=== PATIENT | female | born 1960 | race Caucasian/White ===

== ENCOUNTER → 2019-03-20 | Day surgery (SDC) | payer BC ==
[2019-03-16 13:33] LABS: BASOPHILS % 0.7 % (0.0-1.0); EOSINOPHILS # (AUTO) 0.2 (0.0-0.4); EOSINOPHILS % 3.7 % (0.0-6.0); HEMATOCRIT 39.8 % (34.2-44.1); LYMPHOCYTES # (AUTO) 1.7 (1.0-3.2); LYMPHOCYTES % 28.9 % (18.0-39.1); MEAN CORPUSCULAR HEMOGLOBIN 29.9 pg (28-32); MEAN CORPUSCULAR HGB CONC 32.7 g/dL (31-35); MEAN CORPUSCULAR VOLUME 91.5 fL (81-99); MONOCYTES # (AUTO) 0.5 (0.2-0.8); NEUTROPHILS # (AUTO) 3.4 (2.1-6.9); NEUTROPHILS % 58.5 % (38.7-80.0); PLATELET COUNT 257 x10e3/uL (140-360); RED BLOOD COUNT 4.35 x10e6/uL (3.6-5.1); RED CELL DISTRIBUTION WIDTH 13.6 % (11.7-14.4)
[2019-03-16 13:43] LABS: INR 0.85; PROTHROMBIN TIME 12.1 seconds (11.9-14.5)
[2019-03-16 13:51] LABS: ALANINE AMINOTRANSFERASE 19 IU/L (0-55); ALBUMIN/GLOBULIN RATIO 1.1 (0.8-2.0); ALKALINE PHOSPHATASE 71 IU/L (40-150); BLOOD UREA NITROGEN 16 mg/dL (7-26); BUN/CREATININE RATIO 20 (6-25); CALCIUM 10.1 mg/dL (8.4-10.2); CARBON DIOXIDE 28 mmol/L (22-29); CHLORIDE 101 mmol/L (98-107); CREATININE, SERUM 0.81 mg/dL (0.57-1.11); EST GLOMERULAR FILTRATION RATE > 60 ML/MIN (60-); GLUCOSE 84 mg/dL (74-118); SODIUM 137 mmol/L (136-145)
[~2019-03-20] VITALS: Ht 170.2 cm; Wt 70.3 kg
[2019-03-20] VITALS (10 sets, daily range): BP systolic 113–136; BP diastolic 73–93
[~2019-03-20] MED LIST: ALPRAZOLAM 0.5 MG TAB ONE; BENICAR20 MG PO; CALCIUM500 MG PO; DIPHENHYDRAMINE HCL 25 MG CAP ONE; DYMISTA NASAL S23 GM; ESTRADIOL1 MG PO; FENTANYL CITRATE/PF 100MCG/2 ML INJ ONE; FERROUS SULFAT325 MG PO; FISH OIL 1,2001 EACH PO; HEPARIN SOD/SOD CHLORIDE 2,000 ML ONE; LIDOCAINE HCL 2% LOCAL 20 ML VIAL ONE; MIDAZOLAM HCL 2 MG/2 ML VIAL ONE; OMEPRAZOLE40 MG PO; PROGESTERONE100 MG PO; SODIUM CHLORIDE 0.9% 1000ML 1,000 ML ONE; SYNTHROID125 MCG PO; VERAPAMIL HCL 2.5 MG/ML 2 ML VIAL ONE
--- OUTSIDE RECORDS SUMMARY | 2019-03-20 13:31 | XMS REPORT | Clinical Summary ---
Author Author [facility] Address Unknown Phone Unavailable Care Team Providers Care Foot And Ankle Surgeon Name Role Phone Asked, No Pcp PCP Unavailable Allergies Not on File Medications Not on file Active Problems Not on file Encounters Care Team Description Date Type Specialty Chapito Corcoran MD Trochanteric bursitis, left hip (Primary Dx) 02/20/2019 Transcribe Physical Therapy Orders after 03/19/2018 Social History Date Tobacco Use Types Packs/Day Years Used Never Assessed Sex Assigned at Date Recorded Not on file Industry Job Start Date Occupation Not on file Not on file Not on file Travel End Travel History Travel Start No recent travel history available. Last Filed Vital Signs Not on file Plan of Treatment Care Team Description Date [place] [address] [place] [address] [phone] Linda Mathis, PT 03/23/2019 Office Visit [place] [address] [place] [address] [phone] Linda Mathis, PT 03/28/2019 Office [place] [address] [place] [address] [phone] Linda Mathis, PT 03/30/2019 Office [place] [address] [place] [address] [phone] Linda Mathis, PT 04/04/2019 Office [place] [address] [place] [address] [phone] 04/06/2019 Office Visit Physical Therapy Health Maintenance Due Date Last Done Comments BREAST CANCER SCREENING 2010 COLONOSCOPY SCREENING 2010 SHINGLES VACCINES (#1) 2010 INFLUENZA VACCINE 05/03/2019 Results Not on fileafter 03/19/2018 Insurance Type Payer Benefit Subscriber ID Effective Phone Address Plan / Dates Group PPO BCBS BCBS OUT xxxxxxxxxxxxxx [id number] OF STATE resent Advance Directives Patient has advance care planning documents on file. For more information, karlo phillips contact: Giovanni Uribe [address] [place] [address]
--- OUTSIDE RECORDS SUMMARY | 2019-03-20 13:32 | XMS REPORT | Summary of Care ---
Author Author [facility] Address Unknown Phone Unavailable Encounter MIGEUL Chauhan(KAILA) [id number] Date(s): 10/07/17 - 10/07/17 [facility] Out[facility] [id number] [place] [address] [phone] Discharge Disposition: Home or Self Care Attending Physician: Valeriano Magana MD Vital Signs No data available for this section Problem List Condition Effective Dates Status Health Status Informant Acute stress Resolved disorder(Confirmed) Benign Active hypertension(Confirm ed) Chicken Resolved pox(Confirmed) Low serum vitamin Active D(Confirmed) Rossi Active thyroiditis1 Hypothyroidism(Confi Active rmed) Skin Resolved problem(Confirmed) Thyroid Resolved disease(Confirmed) Vitamin D 02/03/15 Active deficiency2 1Data migrated from [employer] on 04/09/15. 2Data migrated from [employer] on 04/09/15. Allergies, Adverse Reactions, Alerts Substance Reaction Severity Status NKDA Active Medications No data available for this section Results No data available for this section Immunizations Given and Recorded Vaccine Date Status Refusal Reason zoster vaccine live 04/07/16 Given Not Given Vaccine Date Status Refusal Reason influenza virus vaccine, inactivated1 12/13/14 Not Given Patient Refuses 1Result Comment: aware Procedures Procedure Date Related Diagnosis Body Site Laparoscopic sleeve gastrectomy 12/12/14 section ORIF - Open reduction and internal fixation of fracture ORIF - Open reduction and internal fixation of fracture Tonsillectomy and adenoidectomy Social History Social History Type Response Substance Abuse Use: None. Exercise Exercise duration: 30. Exercise frequency: 1-2 times/week. Exercise type: ride bike and treadmil. Employment/School Status: Employed. 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 Other: Maritial Status: to [place] Children: 2 boys Pets: none Surrogate Decision Maker: both. Alcohol Never Smoking Status Never smoker; Exposure to Tobacco Smoke None; Cigarette Smoking Last 365 Days No; Reg Smoking Cessation Counseling Yes Assessment and Plan No data available for this section
--- OUTSIDE RECORDS SUMMARY | 2019-03-20 13:32 | XMS REPORT | Continuity of Care Document ---
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 12/06/2014 [facility] CHEM PANEL Sodium Lvl 142 meq/L 135 - 145 12/06/2014 [facility] CHEM PANEL ALT 27 unit/L 0 - 65 12/06/2014 [facility] CHEM PANEL AST 14 unit/L 0 - 37 12/06/2014 [facility] CHEM PANEL Total Protein 7.6 g/dL 6.4 - 8.4 12/06/2014 [facility] CHEM PANEL Albumin Lvl 4.1 g/dL 3.5 - 5.0 12/06/2014 [facility] CHEM PANEL Calcium Lvl 9.5 mg/dL 8.5 - 10.5 12/06/2014 [facility] HEMATOLOGY INR 0.94 0.85 - 1.17 12/06/2014 5Interpretive Data: RECOMMENDED RANGES FOR PROTIME INR: 2.0-3.0 for most medical and surgical thromboembolic states. 2.5-3.5 for artificial heart valves and recurrent embolism. INR SHOULD BE USED ONLY FOR PATIENTS ON STABLE ANTICOAGULANT THERAPY. [facility] HEMATOLOGY PT 12.6 s 12.0 - 14.7 12/06/2014 [facility] HEMATOLOGY PTT 35.7 s 22.9 - 35.8 12/06/2014 6Interpretive Data: Heparin Therapeutic Range: 57 - 92 Seconds [facility] HEMATOLOGY MPV 8.9 fL 7.4 - 10.4 12/06/2014 [facility] HEMATOLOGY Platelet 241 K/CMM 133 - 450 12/06/2014 [facility] HEMATOLOGY MCHC 33.9 g/dL 32.0 - 36.0 12/06/2014 [facility] HEMATOLOGY RDW 14.4 % 11.5 - 14.5 12/06/2014 [facility] HEMATOLOGY MCV 90.2 fL 80.0 - 98.0 12/06/2014 [facility] HEMATOLOGY MCH 30.5 pg 27.0 - 31.0 12/06/2014 [facility] HEMATOLOGY Hct 42.7 % 36.0 - 48.0 12/06/2014 [facility] HEMATOLOGY RBC 4.74 M/CMM 4.20 - 5.40 12/06/2014 [facility] HEMATOLOGY Hgb 14.5 g/dL 12.0 - 16.0 12/06/2014 [facility] HEMATOLOGY WBC 6.4 K/CMM 3.7 - 10.4 12/06/2014 [facility] HEMATOLOGY Lymphocytes 25.0 % 20.0 - 40.0 12/06/2014 [facility] HEMATOLOGY Monocytes 7.0 % 2.0 - 12.0 12/06/2014 [facility] HEMATOLOGY Segs 65.5 % 45.0 - 75.0 12/06/2014 [facility] HEMATOLOGY Eosinophils 2.3 % 0.0 - 4.0 12/06/2014 [facility] HEMATOLOGY Basophils 0.2 % 0.0 - 1.0 12/06/2014 [facility] HEMATOLOGY Eosinophils # 0.1 K/CMM 0.0 - 0.5 12/06/2014 [facility] HEMATOLOGY Lymphocytes # 1.6 K/CMM 1.0 - 5.5 12/06/2014 [facility] HEMATOLOGY Monocytes # 0.4 K/CMM 0.0 - 0.8 12/06/2014 [facility] HEMATOLOGY Segs-Bands # 4.2 K/CMM 1.5 - 8.1 12/06/2014 [facility] SPECIAL CHEMISTRY Hgb A1C 5.6 % <=5.6 % 12/06/2014 [facility] URINE AND STOOL UA Urobilinogen <=1.0 mg/dL 0.1 - 1.0 12/06/2014 [facility] URINE AND STOOL UA Leuk Est Negative (12/06/14 2:30 PM) Negative 12/06/2014 [facility] URINE AND STOOL UA WBC 1 /HPF 0 - 5 12/06/2014 [facility] URINE AND STOOL UA Sq Epi Few /LPF Few /LPF 12/06/2014 [facility] URINE AND STOOL UA Nitrite Negative (12/06/14 2:30 PM) Negative 12/06/2014 [facility] URINE AND STOOL UA RBC 1 /HPF 0 - 2 12/06/2014 [facility] URINE AND STOOL UA Bacteria Few /HPF None Seen /HPF 12/06/2014 [facility] URINE AND STOOL Micro? Not Indicated *NA* (12/06/14 2:30 PM) 12/06/2014 [facility] URINE AND STOOL UA Protein Negative mg/dL Negative mg/dL 12/06/2014 [facility] URINE AND STOOL UA Spec Grav 1.008 <=1.030 12/06/2014 [facility] URINE AND STOOL UA pH 6.5 5.0 - 8.0 12/06/2014 [facility] URINE AND STOOL UA Blood Negative (12/06/14 2:30 PM) Negative 12/06/2014 [facility] URINE AND STOOL UA Glucose Negative mg/dL Negative mg/dL 12/06/2014 [facility] URINE AND STOOL UA Ketones Negative mg/dL Negative mg/dL 12/06/2014 [facility] URINE AND STOOL UA Color Light Yellow *NA* (12/06/14 2:30 PM) Yellow 12/06/2014 [facility] URINE AND STOOL UA Turbidity Clear (12/06/14 2:30 PM) Clear 12/06/2014 [facility] URINE AND STOOL UA Bili Negative *NA* (12/06/14 2:30 PM) Negative 12/06/2014 [facility] THYROID PANEL TSH 12.800 uIU/mL 0.360 - 3.740 03/15/2014 [facility] THYROID PANEL T4 Free 0.95 ng/dL 0.76 - 1.46 03/15/2014 [facility] CHEMISTRY T4 Free 1.06 ng/dL 0.76 - 1.46 04/14/2013 Normal [facility] CHEMISTRY TSH 0.278 uIU/mL 0.360 - 3.740 04/14/2013 LOW [facility] CHEMISTRY Chloride Lvl 107 meq/L 95 - 109 04/14/2013 Normal [facility] CHEMISTRY Potassium Lvl 4.1 meq/L 3.5 - 5.1 04/14/2013 Normal [facility] CHEMISTRY Sodium Lvl 143 meq/L 135 - 145 04/14/2013 Normal [facility] CHEMISTRY B/C Ratio 16 6 - 25 04/14/2013 Normal [facility] CHEMISTRY eGFR 58 mL/min/1.73m2 04/14/2013 NA 1Result Comment: The eGFR is calculated using the CKD-EPI formula. In most young, healthy individuals the eGFR will be >90 mL/min/1.73m2. The eGFR declines with age. An eGFR of 60-89 may be normal in some populations, particularly the elderly, for whom the CKD-EPI formula has not been extensively validated. Use of the eGFR is not recommended in the following populations: Individuals with unstable creatinine concentrations, including patients and those with serious co-morbid conditions. Patients with extremes in muscle mass or diet. The data above are obtained from the National Kidney Disease Education Program (NKDEP) which additionally recommends that when the eGFR is used in patients with extremes of body mass index for purposes of drug dosing, the eGFR should be multiplied by the estimated BMI. [facility] CHEMISTRY Globulin 3.0 g/dL 2.0 - 4.0 04/14/2013 Normal [facility] CHEMISTRY A/G Ratio 1.3 0.7 - 1.6 04/14/2013 Normal [facility] CHEMISTRY Creatinine Lvl 1.1 mg/dL 0.5 - 1.4 04/14/2013 Normal [facility] CHEMISTRY BUN 18 mg/dL 7 - 22 04/14/2013 Normal [facility] CHEMISTRY Glucose Lvl 77 mg/dL 70 - 99 04/14/2013 Normal 2Interpretive Data: Adult reference range values reflect the clinical guidelines of the [place] [employer]. [facility] CHEMISTRY Bili Total 0.6 mg/dL 0.2 - 1.3 04/14/2013 Normal [facility] CHEMISTRY AST 14 unit/L 0 - 37 04/14/2013 Normal [facility] CHEMISTRY AGAP 11.1 meq/L 10.0 - 20.0 04/14/2013 Normal [facility] CHEMISTRY Alk Phos 86 unit/L 39 - 136 04/14/2013 Normal [facility] CHEMISTRY ALT 32 unit/L 0 - 65 04/14/2013 Normal [facility] CHEMISTRY Total Protein 6.8 g/dL 6.4 - 8.4 04/14/2013 Normal [facility] CHEMISTRY Albumin Lvl 3.8 g/dL 3.5 - 5.0 04/14/2013 Normal [facility] CHEMISTRY CO2 29 meq/L 24 - 32 04/14/2013 Normal [facility] CHEMISTRY Calcium Lvl 9.6 mg/dL 8.5 - 10.5 04/14/2013 Normal [facility] CHEMISTRY T4 Free 1.01 ng/dL 0.76 - 1.46 10/12/2012 Normal [facility] CHEMISTRY TSH 0.852 uIU/mL 0.360 - 3.740 10/12/2012 Normal [facility] CHEMISTRY TSH 0.122 uIU/mL 0.360 - 3.740 08/05/2012 LOW [facility] CHEMISTRY T4 Free 1.26 ng/dL 0.76 - 1.46 08/05/2012 Normal [facility] Vital Signs Vital Sign Value Date Comments Source Weight 70.142 10/30/2018 [facility] BMI Calculated 24.22 10/30/2018 [facility] Heart Rate 67 10/30/2018 [facility] Systolic (mm Hg) 122 10/30/2018 [facility] Diastolic (mm Hg) 80 10/30/2018 [facility] Height 170.18 cm 10/30/2018 [facility] Respitory Rate 18 10/30/2018 [facility] Height 170.18 cm 07/02/2018 [facility] BMI Calculated 24.82 07/02/2018 [facility] Weight 71.875 07/02/2018 [facility] Systolic (mm Hg) 153 07/02/2018 [facility] Diastolic (mm Hg) 79 07/02/2018 [facility] Temperature Oral (F) 98.8 F 07/02/2018 [facility] Respitory Rate 18 07/02/2018 [facility] Heart Rate 68 07/02/2018 [facility] BMI Calculated 24.48 04/27/2018 [facility] Weight 70.909 04/27/2018 [facility] Height 170.18 cm 04/27/2018 [facility] Heart Rate 63 04/27/2018 [facility] Systolic (mm Hg) 140 04/27/2018 [facility] Diastolic (mm Hg) 80 04/27/2018 [facility] Temperature Oral (F) 97.6 F 10/17/2017 [facility] Respitory Rate 18 10/17/2017 [facility] Heart Rate 58 10/17/2017 [facility] Systolic (mm Hg) 135 10/17/2017 [facility] Diastolic (mm Hg) 75 10/17/2017 [facility] BMI Calculated 23.86 08/26/2017 [facility] Weight 69.091 08/26/2017 [facility] Height 170.18 cm 08/26/2017 [facility] Respitory Rate 18 08/26/2017 [facility] Temperature Oral (F) 97.9 F 08/26/2017 [facility] Heart Rate 61 08/26/2017 [facility] Systolic (mm Hg) 117 08/26/2017 [facility] Diastolic (mm Hg) 79 08/26/2017 [facility] BMI Calculated 24.09 08/24/2017 [facility] Height 170.18 cm 08/24/2017 [facility] Weight 69.773 08/24/2017 [facility] Systolic (mm Hg) 114 08/24/2017 [facility] Diastolic (mm Hg) 71 08/24/2017 [facility] Heart Rate 67 08/24/2017 [facility] Temperature Oral (F) 97.5 F 08/24/2017 [facility] Heart Rate 80 12/13/2014 [facility] Systolic (mm Hg) 127 12/13/2014 [facility] Diastolic (mm Hg) 66 12/13/2014 [facility] Respitory Rate 18 12/13/2014 [facility] Temperature Oral (F) 98.1 F 12/13/2014 [facility] Temperature Oral (F) 98.6 F 12/13/2014 [facility] Respitory Rate 20 12/13/2014 [facility] Heart Rate 66 12/13/2014 [facility] Systolic (mm Hg) 119 12/13/2014 [facility] Diastolic (mm Hg) 50 12/13/2014 [facility] Heart Rate 65 12/13/2014 [facility] Temperature Oral (F) 98.6 F 12/13/2014 [facility] Respitory Rate 18 12/13/2014 [facility] Systolic (mm Hg) 118 12/13/2014 [facility] Diastolic (mm Hg) 63 12/13/2014 [facility] Weight 115.4 12/12/2014 [facility] Weight 115.455 12/06/2014 [facility] BMI Calculated 39.87 12/06/2014 [facility] Height 170.18 cm 12/06/2014 [facility] Encounters Location Location Details Encounter Type Encounter Number Reason For Visit Attending Provider ADM Date DC Date Status Source [facility] Outpatient [id number] 245.2 RUSSELL SHIVER 08/05/2012 Active [facility] Outpatient [id number] 245.2 RUSSELL SHIVER 10/12/2012 Active [facility] Outpatient [id number] 245.2, 401.1, V62.89 RUSSELL SHIVER 04/14/2013 Active [facility] Outpatient [id number] Russell Shiver 03/15/2014 03/16/2014 [facility] Outpatient [id number] Steve Kumari 06/26/2014 06/26/2014 [facility] Inpatient [id number] Steve Kumari 12/12/2014 12/13/2014 [facility] Outpatient [id number] Russell Shiver 01/18/2015 01/19/2015 [facility] Outpatient [id number] RUSSELL SHIVER 06/03/2015 Active [facility] [place] [facility] [id number] Valeriano Magana 12/22/2015 12/23/2015 [facility] [place] [facility] [id number] RUSSELL SHIVER 01/12/2016 Active [facility] Outpatient [id number] YANET HEARN 03/22/2016 Active [facility] Outpatient [id number] NURSE VISIT 04/07/2016 Active [facility] Outpatient [id number] YANET HEARN 05/31/2016 Active [facility] Outpatient [id number] Russell Romeo 07/02/2016 07/03/2016 [facility] Outpatient [id number] RUSSELL ESPINAL 07/13/2016 Active [facility] [place] [facility] [id number] Valeriano Anding 09/30/2016 10/01/2016 [facility] [id number] MARI DOTY 01/09/2017 Active [facility] Outpatient [id number] MARI DOTY 06/23/2017 Active [facility] Outpatient [id number] RUSSELL ESPINAL 08/17/2017 Active [facility] Ambulatory Pre-Reg [id number] Yanet Hearn 08/17/2017 08/17/2017 [facility] Outpatient [id number] RUSSELL ESPINAL 08/24/2017 Active [facility] Outpatient [id number] Yanet Hearn 08/24/2017 08/25/2017 [facility] Outpatient [id number] ADOLFO NICOLE 08/26/2017 Active [facility] Outpatient [id number] Yanet Hearn 08/26/2017 08/27/2017 [facility] Outpatient [facility] [place] [facility] [id number] [facility] 10[facility]07/2017 10/08/2017 [facility] [id number] ADOLFO NICOLE 10/17/2017 Active [facility] Outpatient [id number] Yanet Hearn 10/17/2017 10/18/2017 [facility] Internal Medicine [facility] Phone Message [id number] 12/02/2017 12/04/2017 [facility] Outpatient [id number] BRITTANI OLVERA 01/24/2018 Active [facility] Outpatient [id number] Yanet Hearn 01/24/2018 01/25/2018 [facility] Outpatient [id number] RUSSELL ESPINAL 04/27/2018 Active [facility] Outpatient [id number] Yanet Hearn 04/27/2018 04/28/2018 [facility] Outpatient [id number] RAVINDRA BRUNSON 07/02/2018 Active [facility] Outpatient [id number] Mari Doty 07/02/2018 07/03/2018 [facility] Internal Medicine [facility] Phone Message [id number] 08/21/2018 08/23/2018 [facility] Internal [facility] Phone Message [id number] 10/25/2018 10/27/2018 [facility] Outpatient [id number] RUSSELL SHIVER 10/30/2018 [facility] Outpatient [id number] Russell Shiver 10/30/2018 10/31/2018 [facility] Between Visit [id number] 01/10/2019 01/11/2019 [facility] Phone Message [id number] 01/11/2019 01/13/2019 [facility] Phone Message [id number] 02/08/2019 02/10/2019 [facility] Outpatient [id number] Russell Shiver 05/10/2019 [facility] Procedures Procedure Code Date Perfomer Comments Source Procedure<sup>1</sup> [id number] 09/02/2018 left leg veins [facility] Laparoscopic sleeve gastrectomy [id number] 12/12/2014 [facility] Laparoscopic sleeve gastrectomy [id number] 12/12/2014 [facility] Laparoscopic sleeve gastrectomy [id number] 12/12/2014 [facility] Women[facility] Laparoscopic sleeve gastrectomy [id number] 12/12/2014 Medical [facility] section [id number] [facility] ORIF - Open reduction and internal fixation of fracture [id number] [facility] Tonsillectomy and adenoidectomy [id number] [facility] section [id number] [facility] ORIF - Open reduction and internal fixation of fracture [id number] [facility] Tonsillectomy and adenoidectomy [id number] [facility] section [id number] [facility] Women's ORIF - Open reduction and internal fixation of fracture [id number] [facility] Women[facility] Tonsillectomy and adenoidectomy [id number] [facility] Women's section [id number] [facility] ORIF - Open reduction and internal fixation of fracture [id number] [facility] Tonsillectomy and adenoidectomy [id number] [facility]
--- OUTSIDE RECORDS SUMMARY | 2019-03-20 13:32 | XMS REPORT | Summary of Care ---
Author Author [email or web address] - [facility] Address Unknown Phone Unavailable Encounter HQ Encntr_alias(FIN) [id number] Date(s): 12/22/15 - 12/22/15 [email or web address] [address] [place] [address] [phone] Discharge Disposition: Home Attending Physician: Valeriano Mgaana MD Vital Signs No data available for this section Problem List No data available for this section Allergies, Adverse Reactions, Alerts No data available for this section Medications No data available for this section Results No data available for this section Immunizations No data available for this section Procedures No data available for this section Social History No data available for this section Assessment and Plan No data available for this section
--- OUTSIDE RECORDS SUMMARY | 2019-03-20 13:32 | XMS REPORT | Summary of Care ---
Author Organization Unknown Address Unknown Phone Unavailable Encounter HQ Rolandntr_clementine(FIN) [id number] Date(s): 03/15/14 - 03/15/14 [facility] [address] Discharge Disposition: Home Physician Attending: Carlee Walters MD Reason for Visit 278.00 Problem List No data available for this section Allergies, Adverse Reactions, Alerts No data available for this section Medications No data available for this section Results THYROID PANEL Most recent to 1 oldest [Reference Range]: T4 Free [0.76-1.46 0.95 ng/dL ng/dL] (03/15/14 4:11 PM) TSH [0.360-3.740 12.800 uIU/mL uIU/mL] *HI* (03/15/14 4:11 PM) Medications Administered During Your Visit No data available for this section Immunizations No data available for this section
--- OUTSIDE RECORDS SUMMARY | 2019-03-20 13:32 | XMS REPORT | CCD ---
Author Author Auto Generated Organization [facility] Address Unknown Phone Unavailable Care Team Providers Care Clinical Academic Allergist Name Role Phone Carlee Walters CP Results CHEMISTRY Most recent to oldest [Reference Range]: 1 T4 Free [0.76-1.46 ng/dL] 1.01 ng/dL (10/12/2012 17:45:00) TSH [0.360-3.740 uIU/mL] 0.852 uIU/mL (10/12/2012 17:45:00)
--- OUTSIDE RECORDS SUMMARY | 2019-03-20 13:32 | XMS REPORT | Summary of Care ---
Author Organization Unknown Address Unknown Phone Unavailable Encounter HQ Encntr_alias(KAILA) [id number] Date(s): 06/26/14 - 06/26/[address] Discharge Disposition: Home Physician Attending: Steve Kumari MD Physician_Referring: Steve Kumari MD Reason for Visit [id number] 530.81 Problem List No data available for this section Allergies, Adverse Reactions, Alerts No data available for this section Medications No data available for this section Medications Administered During Your Visit No data available for this section Immunizations No data available for this section
--- OUTSIDE RECORDS SUMMARY | 2019-03-20 13:32 | XMS REPORT | Summary of Care ---
Author Author [facility] Internal Medicine [facility] [place] Organization [facility] Internal Medicine [facility] [place] Address Unknown Phone Unavailable Encounter MIGUEL Chauhan(FIN) [id number] Date(s): 08/21/18 - 08/22/18 [facility] Internal Medicine [facility] [place] [address] [place] [address]- [phone] Vital Signs No data available for this section Problem List Condition Effective Dates Status Health Status Informant Acute stress Resolved disorder(Confirmed) Benign Active hypertension(Confirm ed) Chicken Resolved pox(Confirmed) Low serum vitamin Active D(Confirmed) Rossi Active thyroiditis1 Hypothyroidism(Confi Active rmed) Skin Resolved problem(Confirmed) Thyroid Resolved disease(Confirmed) Vitamin D 02/03/15 Active deficiency2 1Data migrated from [employer] on 04/09/15. 2Data migrated from [employer] on 04/09/15. Allergies, Adverse Reactions, Alerts No Known Medication Allergies Medications olmesartan 20 mg oral tablet 20 mg=1 tab, PO, Daily, # 30 tab, 5 Refill(s), Pharmacy: [facility]/pharmacy #[id number] Start Date: 08/21/18 Stop Date: 02/08/19 Status: Completed Results No data available for this section Immunizations Given and Recorded Vaccine Date Status Refusal Reason zoster vaccine live 04/07/16 Given Not Given Vaccine Date Status Refusal Reason influenza virus vaccine, inactivated1 12/13/14 Not Given Patient Refuses 1Result Comment: md aware Procedures Procedure Date Related Diagnosis Body Site Status Procedure1 09/2018 Completed Laparoscopic sleeve gastrectomy 12/12/14 Completed section Completed ORIF - Open reduction and internal fixation Completed of fracture ORIF - Open reduction and internal fixation Completed of fracture Tonsillectomy and adenoidectomy Completed 1left leg veins Social History Social History Type Response Substance Abuse Use: None. Exercise Exercise duration: 30. Exercise frequency: 1-2 times/week. Exercise type: Walking, ride bike and treadmil. Employment/School Status: Employed. 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 Other: Maritial Status: to [place] Children: 2 boys Pets: none Surrogate Decision Maker: both. Alcohol Current, Frequency: 1-2 times per week. Smoking Status Never smoker; Ready to change: No; Concerns about tobacco use in household: No; Exposure to Tobacco Smoke None; Cigarette Smoking Last 365 Days No; Reg Smoking Cessation Counseling Yes entered on: 10/30/18 Assessment and Plan No data available for this section
--- OUTSIDE RECORDS SUMMARY | 2019-03-20 13:32 | XMS REPORT | Summary of Care ---
Author Author [facility] Organization [facility] Address Unknown Phone Unavailable Encounter MIGUEL Chauhan(FIN) [id number] Date(s): 10/17/17 - 10/17/17 [facility] [address] [place] [address] [phone] Discharge Disposition: Home or Self Care Attending Physician: Toni Pastor MD Referring Physician: Nova Rivero MD Vital Signs Most recent to 1 oldest [Reference Range]: Temperature Oral 97.6 DegF [96.4-99.1 DegF] (10/17/17 5:55 PM) Blood Pressure 135/75 mmHg [90-140/60-90 mmHg] (10/17/17 5:55 PM) Respiratory Rate 18 BRMIN [14-20 BRMIN] (10/17/17 5:55 PM) Peripheral Pulse 58 bpm Rate [60-100 bpm] *LOW* (10/17/17 5:55 PM) Problem List Condition Effective Dates Status Health Status Informant Acute stress Resolved disorder(Confirmed) Benign Active hypertension(Confirm ed) Chicken Resolved pox(Confirmed) Low serum vitamin Active D(Confirmed) Rossi Active thyroiditis1 Hypothyroidism(Confi Active rmed) Skin Resolved problem(Confirmed) Thyroid Resolved disease(Confirmed) Vitamin D 02/03/15 Active deficiency2 1Data migrated from [email or web address] on 04/09/15. 2Data migrated from [email or web address] on 04/09/15. Allergies, Adverse Reactions, Alerts Substance Reaction Severity Status NKDA Active Medications Augmentin 875 mg oral tablet 875 mg=1 tab, PO, BID, X 10 day, # 20 tab, 0 Refill(s) Start Date: 10/17/17 Stop Date: 10/27/17 Status: Completed Results No data available for this section Immunizations Given and Recorded Vaccine Date Status Refusal Reason zoster vaccine live 04/07/16 Given Not Given Vaccine Date Status Refusal Reason influenza virus vaccine, inactivated1 12/13/14 Not Given Patient Refuses 1Result Comment: aware Procedures Procedure Date Related Diagnosis Body Site Status Laparoscopic sleeve gastrectomy 12/12/14 Completed section Completed ORIF - Open reduction and internal fixation Completed of fracture ORIF - Open reduction and internal fixation Completed of fracture Tonsillectomy and adenoidectomy Completed Social History Social History Type Response Substance Abuse Use: None. Exercise Exercise duration: 30. Exercise frequency: 1-2 times/week. Exercise type: ride bike and treadmil. Employment/School Status: Employed. 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 Other: Maritial Status: to Seg[place] Children: 2 boys Pets: none Surrogate Decision Maker: both. Alcohol Never Smoking Status Never smoker; Ready to change: No; Concerns about tobacco use in household: No; Exposure to Tobacco Smoke None; Cigarette Smoking Last 365 Days No; Reg Smoking Cessation Counseling Yes entered on: 10/17/17 Assessment and Plan No data available for this section
--- OUTSIDE RECORDS SUMMARY | 2019-03-20 13:32 | XMS REPORT | CCD ---
Author Author Auto Generated Organization [facility] Address Unknown Phone Unavailable Care Team Providers Care [employer] Music Teacher Name Role Phone Carlee Walters CP Results CHEMISTRY Most recent to oldest [Reference Range]: 1 Sodium Lvl [135-145 mEq/L] 143 mEq/L (04/14/2013 08:27:00) Potassium Lvl [3.5-5.1 mEq/L] 4.1 mEq/L (04/14/2013 08:27:00) Chloride Lvl [95-109 mEq/L] 107 mEq/L (04/14/2013 08:27:00) CO2 [24-32 mEq/L] 29 mEq/L (04/14/2013 08:27:00) AGAP [10.0-20.0 mEq/L] 11.1 mEq/L (04/14/2013 08:27:00) Creatinine Lvl [0.5-1.4 mg/dL] 1.1 mg/dL (04/14/2013 08:27:00) eGFR 58 mL/min/1.73m2 1 *NA* (04/14/2013 08:27:00) BUN [7-22 mg/dL] 18 mg/dL (04/14/2013 08:27:00) B/C Ratio [6-25] 16 (04/14/2013 08:27:00) Glucose Lvl [70-99 mg/dL] 77 mg/dL 2 (04/14/2013 08:27:00) Total Protein [6.4-8.4 g/dL] 6.8 g/dL (04/14/2013 08:27:00) Albumin Lvl [3.5-5.0 g/dL] 3.8 g/dL (04/14/2013 08:27:00) Globulin [2.0-4.0 g/dL] 3.0 g/dL (04/14/2013) A/G Ratio [0.7-1.6] 1.3 (04/14/2013:) Calcium Lvl [8.5-10.5 mg/dL] 9.6 mg/dL (04/14/2013:) ALT [0-65 unit/L] 32 unit/L (04/14/2013:) AST [0-37 unit/L] 14 unit/L (04/14/2013) Alk Phos [39-136 unit/L] 86 unit/L (04/14/2013) Bili Total [0.2-1.3 mg/dL] 0.6 mg/dL (04/14/2013) T4 Free [0.76-1.46 ng/dL] 1.06 ng/dL (04/14/2013) TSH [0.360-3.740 uIU/mL] 0.278 uIU/mL *LOW* (04/14/2013) 1Result Comment: The eGFR is calculated using [...] from the National Kidney Disease Education Program ( NKDEP) which additionally recommends that when the eGFR is used in patients with extremes of body mass index for purposes of drug dosing, the eGFR should be mul tiplied by the estimated BMI. 2Interpretive Data: Adult reference range values reflect the clinical guidelines of the [place] [employer].
--- OUTSIDE RECORDS SUMMARY | 2019-03-20 13:32 | XMS REPORT | Summary of Care ---
Author Author [facility] Address Unknown Phone Unavailable Encounter HQ Encntr_alias(FIN) [id number] Date(s): 09/30/16 - 09/30/16 [facility] Outpatient Imaging - [facility] works [facility] [address] [place] [id number] [place] [address] [phone] Discharge Disposition: Home or Self Care Attending [...]
--- OUTSIDE RECORDS SUMMARY | 2019-03-20 13:32 | XMS REPORT | Summary of Care ---
Author Author [facility] Internal Medicine [facility] [place] Organization [facility] [place] Address Unknown Phone Unavailable Encounter MIGUEL Chauhan(FIN) [id number] Date(s): 08/17/17 - 08/17/17 [facility] Internal [place] [facility] [place] [address] [place] [address]- Attending Physician: Carlee Walters MD Referring Physician: Nova Rivero MD Vital Signs No data available for [...] treadmil. Employment/School Status: Employed. 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 Other: Maritial Status: to Seg[place] Children: 2 boys Pets: none Surrogate Decision Maker: both. Alcohol Never Smoking Status Never smoker; Exposure to Tobacco Smoke None; Cigarette Smoking Last 365 Days No; Reg Smoking Cessation Counseling Yes Assessment and Plan No data available for this section
--- OUTSIDE RECORDS SUMMARY | 2019-03-20 13:32 | XMS REPORT | Summary of Care ---
Author Organization Unknown Address Unknown Phone Unavailable Encounter HQ Amarilis_clementine(FIN) [id number] Date(s): 01/18/15 - 01/18/15 [facility] [address] [place] [address]- Discharge Disposition: Home Physician Attending: Carlee Walters MD Vital Signs No data available for this section Problem List Condition Effective Dates Status Health Status Informant Hypertension(Confirm Active ed) Hypothyroidism(Confi Active rmed) Morbid Active obesity(Confirmed) Allergies, Adverse Reactions, Alerts Substance Reaction Severity Status NKDA Active Medications No data available for this section Results THYROID PANEL Most recent to 1 oldest [Reference Range]: T4 Free [0.76-1.46 1.44 ng/dL ng/dL] (01/18/15 9:05 AM) TSH [0.360-3.740 0.295 uIU/mL uIU/mL] *LOW* (01/18/15 9:05 AM) Immunizations Vaccine Date Refusal Reason influenza virus vaccine, inactivated1 12/13/14 Patient Refuses 1Result Comment: aware Procedures Procedure Date Related Diagnosis Body Site Laparoscopic sleeve gastrectomy 12/12/14 section ORIF - Open reduction and internal fixation of fracture ORIF - Open reduction and internal fixation of fracture Tonsillectomy and adenoidectomy Social History Social History Type Response Alcohol Current, Frequency: 1-2 times per week. Smoking Status Never smoker; Type: Cigarettes; Exposure to Tobacco Smoke None; Cigarette Smoking Last 365 Days No; Reg Smoking Cessation Counseling Yes Assessment and Plan No data available for this section
--- OUTSIDE RECORDS SUMMARY | 2019-03-20 13:32 | XMS REPORT | CCD ---
Author Author Auto Generated Organization [facility] Address Unknown Phone Unavailable Care Team Providers Care Automatic Packer Operator Name Role Phone Carlee Walters RP Results CHEMISTRY Most recent to oldest [Reference Range]: 1 T4 Free [0.76-1.46 ng/dL] 1.26 ng/dL (08/05/2012 10:00:00) TSH [0.360-3.740 uIU/mL] 0.122 uIU/mL *LOW* (08/05/2012 10:00:00)
--- OUTSIDE RECORDS SUMMARY | 2019-03-20 13:32 | XMS REPORT | Summary of Care ---
Author Author [facility] Internal Medicine [facility] [place] Organization [facility] Internal Medicine [facility] Address Unknown Phone Unavailable Encounter MIGUEL Chauhan(KAILA) [id number] Date(s): 08/24/17 - 08/24/17 [facility] Internal Medicine [address] [place] [address]- Discharge Disposition: Home or Self Care Attending Physician: Nova Rivero MD Referring Physician: Nova Rivero MD Vital Signs Most recent to 1 oldest [Reference Range]: Height 170.18 cm (08/24/17 8:39 AM) Temperature Oral 97.5 DegF [96.4-99.1 DegF] (08/24/17 8:39 AM) Blood Pressure 114/71 mmHg [90-140/60-90 mmHg] (08/24/17 8:39 AM) Peripheral Pulse 67 bpm Rate [60-100 bpm] (08/24/17 8:39 AM) Weight 69.773 kg (08/24/17 8:39 AM) Body Mass Index 24.09 m2 (08/24/17 8:39 AM) Problem List Condition Effective Dates Status Health Status Informant Acute stress Resolved disorder(Confirmed) Benign Active hypertension(Confirm ed) Chicken Resolved pox(Confirmed) Low serum vitamin Active D(Confirmed) Rossi Active thyroiditis1 Hypothyroidism(Confi Active rmed) Skin Resolved problem(Confirmed) Thyroid Resolved disease(Confirmed) Vitamin D 02/03/15 Active deficiency2 1Data migrated from [employer] on 04/09/15. 2Data migrated from [employer] on 04/09/15. Allergies, Adverse Reactions, Alerts Substance Reaction Severity Status NKDA Active Medications Synthroid 137 mcg (0.137 mg) oral tablet 137 microgram=1 tab, PO, Daily, # 14 tab, 0 Refill(s), given to patient Start Date: 08/24/17 Status: Ordered Synthroid 137 mcg (0.137 mg) oral tablet 137 microgram=1 tab, PO, Daily, # 90 tab, 1 Refill(s), BUD, Pharmacy: [facility] #[id number], Brand necessary Start Date: 08/24/17 Stop Date: 02/20/18 Status: Ordered Results No data available for this section [...] treadmil. Employment/School Status: Employed. 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 Other: Maritial Status: to Seg[place] Children: 2 boys Pets: none Surrogate Decision Maker: both. Alcohol Never Smoking Status Never smoker; Exposure to Tobacco Smoke None; Cigarette Smoking Last 365 Days No; Reg Smoking Cessation Counseling Yes Assessment and Plan No data available for this section
--- OUTSIDE RECORDS SUMMARY | 2019-03-20 13:32 | XMS REPORT | Summary of Care ---
Author Author [facility] Organization [facility] Address Unknown Phone Unavailable Encounter MIGUEL Chauhan(FIN) [id number] Date(s): 08/26/17 - 08/26/17 [facility] [address] [place] [address] [phone] Discharge Disposition: Home or Self Care Attending Physician: Michael Doty MD Referring Physician: Nova Rivero MD Vital Signs Most recent to 1 oldest [Reference Range]: Height 170.18 cm (08/26/17 12:39 PM) Temperature Oral 97.9 DegF [96.4-99.1 DegF] (08/26/17 12:39 PM) Blood Pressure 117/79 mmHg [90-140/60-90 mmHg] (08/26/17 12:39 PM) Respiratory Rate 18 BRMIN [14-20 BRMIN] (08/26/17 12:39 PM) Peripheral Pulse 61 bpm Rate [60-100 bpm] (08/26/17 12:39 PM) Weight 69.091 kg (08/26/17 12:39 PM) Body Mass Index 23.86 m2 (08/26/17 12:39 PM) Problem List Condition Effective Dates Status [...] day, # 20 tab, 0 Refill(s), Pharmacy: [facility]/pharmacy # [id number] Start Date: 08/26/17 Stop Date: 09/05/17 Status: Ordered Results No data available for [...] treadmil. Employment/School Status: Employed. 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 Other: Maritial Status: to Seg[place] Children: 2 boys Pets: none Surrogate Decision Maker: both. Alcohol Never Smoking Status Never smoker; Exposure to Tobacco Smoke None; Cigarette Smoking Last 365 Days No; Reg Smoking Cessation Counseling Yes Assessment and Plan No data available for this section
--- OUTSIDE RECORDS SUMMARY | 2019-03-20 13:32 | XMS REPORT | Summary of Care ---
Author Author [facility] Organization [facility] Address Unknown Phone Unavailable Encounter HQ Encntr_alias(FIN) [id number] Date(s): 07/02/16 - 07/02/16 [facility] [address] [place] [address]- Discharge Disposition: Home or Self Care Attending Physician: Carlee Walters MD Vital Signs No data [...]
--- OUTSIDE RECORDS SUMMARY | 2019-03-20 13:32 | XMS REPORT | Summary of Care ---
Author Author [facility] Address Unknown Phone Unavailable Encounter MIGUEL Chauhan(FIN) [id number] Date(s): 10/07/17 - 10/07/17 [facility] [address] [place] [address]- [place] [phone] Encounter Diagnosis Encounter for screening mammogram for malignant neoplasm of breast (Final) - 10/12/17 Disorder of bone density and structure, unspecified (Final) - Asymptomatic menopausal state (Final) - Other specified disorders of bone density and structure, unspecified site (Final) - Discharge Disposition: Home or Self Care Attending [...] D 02/03/15 Active deficiency2 1Data migrated from [employer] on 04/09/15. 2Data migrated from [employer] on 04/09/15. Allergies, Adverse Reactions, Alerts Substance [...] treadmil. Employment/School Status: Employed. 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 Other: Maritial Status: to Seg[place] Children: 2 [...]
--- OUTSIDE RECORDS SUMMARY | 2019-03-20 13:32 | XMS REPORT | Summary of Care ---
Author Organization Unknown Address Unknown Phone Unavailable Encounter HQ Gissel(KAILA) [id number] Date(s): 12/12/14 - 12/13/14 [facility] [address] [employer] provided by [employer] [facility] [employer] [place] [address]- Discharge Disposition: Home Physician Attending: Steve Kumari MD Physician Admitting: Steve Kumari MD Physician_Referring: Steve Kumari MD Vital Signs 1 2 3 Most recent to oldest [Reference Range]: 170.18 cm (12/06/14 3:54 PM) Height 98.1 DegF (12/13/14 12:21 PM) 98.6 DegF (12/13/14 8:19 AM) 98.6 DegF (12/13/14 4:27 AM) Temperature Oral [96.4-99.1 DegF] 127/66 mmHg (12/13/14 12:21 PM) 119/50 mmHg (12/13/14 8:19 AM) 118/63 mmHg (12/13/14 4:27 AM) Blood Pressure [90-140/60-90 mmHg] 18 BRMIN (12/13/14 12:21 PM) 20 BRMIN (12/13/14 8:19 AM) 18 BRMIN (12/13/14 4:27 AM) Respiratory Rate [14-20 BRMIN] 80 bpm (12/13/14 12:21 PM) 66 bpm (12/13/14 8:19 AM) 65 bpm (12/13/14 4:27 AM) Peripheral Pulse Rate [60-100 bpm] 115.4 kg (12/12/14 12:37 PM) 115.455 kg (12/06/14 3:54 PM) Weight 39.87 m2 (12/06/14 3:54 PM) Body Mass Index Problem List Condition Effective Dates Status Health Status Informant Hypertension(Confirm Active ed) Hypothyroidism(Confi Active rmed) Morbid Active obesity(Confirmed) Allergies, Adverse Reactions, Alerts Substance Reaction Severity Status NKDA Active Medications acetaminophen-codeine 120 mg-12 mg/5 mL oral liquid 5 ml, PO, Q4H, Pain, # 240 mL, 0 Refill(s) Start Date: 12/13/14 Stop Date: 12/13/14 Status: Discontinued Benadryl 10 mg, 0.2 mL, Route: IVP, Drug form: INJ, ONCE, Dosing Weight 115.4, kg, PRN It michael, Start date: 12/13/14 1:52:00 Notes: (Same as: Benadryl) Start Date: 12/13/14 Stop Date: 12/13/14 Status: Completed cefOXitin (SCIP) 2 gm, Route: IVPB, Drug form: INJ, Q6H, Dosing Weight 115.455, kg, Start date: 0 12/12/14 12:00:00, Duration: 1 doses or times, Stop date: 12/12/14 12:00:00 Notes: (Same As: Mefoxin) Start Date: 12/12/14 Stop Date: 12/12/14 Status: Deleted Dilaudid 0.5 mg, 0.25 mL, Route: IV, Drug form: INJ, Q3H, Dosing Weight 115.455, kg, PRN Pain Score 7-10, Start date: 12/12/14 8:48:00, Duration: 30 day, Stop date: 01/01 10/17 8:47:00 Notes: Same as: Dilaudid Start Date: 12/12/14 Stop Date: 12/13/14 Status: Discontinued estradiol 2 mg oral tablet 2 mg=1 tab, PO, Daily, # 30 tab, 0 Refill(s) Start Date: 12/06/14 Stop Date: 12/13/14 Status: Discontinued Fish Oil PO, Daily, 0 Refill(s) Start Date: 12/06/14 Stop Date: 12/13/14 Status: Discontinued flumazenil 0.2 mg, Route: IVP, PRN, Dosing Weight 115.455, kg, PRN Benzodiazepine Reversal, Initial dose, Start date: 12/12/14 10:54:00, Duration: 30 day, Stop date: 01/11 10:53:00 Start Date: 12/12/14 Stop Date: 12/12/14 Status: Discontinued heparin 5,000 unit, 1 mL, Route: SUB-Q, Drug form: INJ, PRE OP, Start date: 12/11/14 23: 00:00, Duration: 1 day, Stop date: 12/12/14 22:59:00 Notes: porcine heparin Start Date: 12/11/14 Stop Date: 12/12/14 Status: Completed hydrochlorothiazide-lisinopril 25 mg-20 mg oral tablet 1 tab, PO, Daily, # 30 tab, 0 Refill(s) Start Date: 12/13/14 Stop Date: 12/13/14 Status: Discontinued hydrochlorothiazide-lisinopril 25 mg-20 mg oral tablet 1 tab, PO, Daily, # 30 tab, 0 Refill(s) Start Date: 12/06/14 Stop Date: 12/13/14 Status: Discontinued hydromorphone 0.5 mg, Route: IVP, Q5Min, Dosing Weight 115.455, kg, PRN Pain Score 7-10, Start date: 12/12/14 10:54:00, Duration: 4 doses or times, Stop date: Limited # of ti mes Start Date: 12/12/14 Stop Date: 12/12/14 Status: Discontinued HYDROmorphone 0.5mg/mL AUTOM[employer]BILE MECH[employer]IC SUPERVISOR (15mg/30 mL) 15 mg 15 mg, 30 mL, Route: IV, Initial Loading Dose: 0.3 mg, [employer]CH[employer]IC SUPERVISOR Dose: 0.2 mg, AUT[employer]CH[employer]IC SUPERVISOR Loc kout: 12 minutes, Continuous Basal Rate: 0 mg, 4 Hour Limit (In MG): 6, Drug For m: INJ, Continuous, Start date: 12/12/14 9:00:00, Duration: 30 day, Stop date: 0 01/11/15 8:5... Notes: (Same as: Dilaudid) conc=0.5 mg/mlHydromorphone [employer]CH[employer]IC SUPERVISOR Dose: ;Delay: ;Basal: Start Date: 12/12/14 Stop Date: 12/13/14 Status: Discontinued influenza virus vaccine, inactivated 0.5 ml, Route: IM, Drug Form: SUSP, Daily, Start date: 12/13/14 9:00:00, Duratio n: 1 doses or times, Stop date: 12/13/14 9:00:00 Notes: (Same as: Fluzone Quadrivalent) Start Date: 12/13/14 Stop Date: 12/13/14 Status: Completed labetalol 10 mg, Route: IVP, Q5Min, Dosing Weight 115.455, kg, PRN Elevated BP, Start date : 12/12/14 10:54:00, Duration: 5 doses or times, Stop date: Limited # of times Start Date: 12/12/14 Stop Date: 12/12/14 Status: Discontinued Lactated Ringers Injection IV 1,000 mL 1,000 mL, Rate: 75 ml/hr, Infuse over: 13.3 hr, Route: IV, Dosing Weight 115.455 kg, Total Volume: 1,000, Start date: 12/12/14 8:48:00, Stop date: 01/11/15 8:47 :00 Start Date: 12/12/14 Stop Date: 12/13/14 Status: Discontinued lisinopril 20 mg oral tablet 20 mg=1 tab, PO, Daily, # 30 tab, 0 Refill(s) Start Date: 12/13/14 Status: Ordered Lovenox 30 mg, 0.3 mL, Route: SUB-Q, Drug form: INJ, [id number], Dosing Weight 115.455, kg , Start date: 12/13/14 8:00:00, Duration: 30 day, Stop date: 01/11/15 20:00:00 Notes: (Same as: Lovenox) Start Date: 12/13/14 Stop Date: 12/13/14 Status: Discontinued medroxyPROGESTERone 2.5, PO, Daily, 0 Refill(s) Start Date: 12/06/14 Stop Date: 12/13/14 Status: Discontinued Mefoxin 2 gm, Route: IVPB, Drug form: INJ, Q6H, Dosing Weight 115.455, kg, Start date: 0 12/12/14 16:00:00, Duration: 1 doses or times, Stop date: 12/12/14 16:00:00 Notes: (Same As: Mefoxin) Start Date: 12/12/14 Stop Date: 12/12/14 Status: Completed Mefoxin 2 gm, Route: IVPB, Drug form: INJ, PRE OP, Start date: 12/11/14 23:00:00, Durati on: 1 day, Stop date: 12/12/14 22:59:00 Notes: (Same As: Mefoxin) Start Date: 12/11/14 Stop Date: 12/12/14 Status: Completed multivitamin PO, Daily, 0 Refill(s) Start Date: 12/06/14 Stop Date: 12/13/14 Status: Discontinued naloxone 0.04 mg, Route: IVP, Q2MIN, Dosing Weight 115.455, kg, PRN Narcotic Reversal, St art date: 12/12/14 10:54:00, Duration: 8 doses or times, Stop date: Limited # of times Start Date: 12/12/14 Stop Date: 12/12/14 Status: Discontinued naloxone 0.04 mg, 0.1 mL, Route: IVP, Drug form: INJ, Q2MIN, Dosing Weight 115.455, kg, P RN Narcotic Reversal, Start date: 12/12/14 8:48:00, Duration: 30 day, Stop date: 01/11/15 8:47:00 Notes: Same as Narcan Start Date: 12/12/14 Stop Date: 12/13/14 Status: Discontinued Ofirmev 1,000 mg, 100 mL, Route: IV, Drug form: INJ, Q6H, Dosing Weight 115.455, kg, for > or=50 kg, Start date: 12/12/14 12:00:00, Duration: 1 day, Stop date: 12/13/14 6:00:00 Notes: Infuse over 15 minutes Do not exceed 4gm/day of acetaminophen Start Date: 12/12/14 Stop Date: 12/13/14 Status: Completed ondansetron 4 mg, Route: IVP, ONCE, Dosing Weight 115.455, kg, PRN Nausea & Vomiting, Start date: 12/12/14 10:54:00 Start Date: 12/12/14 Stop Date: 12/12/14 Status: Discontinued Phenergan 12.5 mg rectal suppository 12.5 mg=1 supp, IA, Q4H, Nausea & Vomiting, # 12 supp, 0 Refill(s) Start Date: 12/13/14 Status: Ordered scopolamine 1.5 mg transdermal film 1 patch, Route: TOP, Drug Form: ERFILM, Dosing Weight 115.455, kg, ONCE, Start d ate: 12/12/14 8:41:00, Stop date: 12/12/14 8:41:00 Start Date: 12/12/14 Stop Date: 12/12/14 Status: Completed Synthroid 137 mcg (0.137 mg) oral tablet 137 microgram=1 tab, PO, Daily, # 30 tab, 0 Refill(s) Start Date: 12/06/14 Stop Date: 12/13/14 Status: Discontinued Tylenol with Codeine 120 mg-12 mg/5 mL oral liquid 15 ml, Route: PO, Drug Form: LIQ, Dosing Weight 115.4, kg, Q4H, PRN Pain Score 1 -5, Start date: 12/13/14 6:56:00, Stop date: 01/12/15 6:55:00 Notes: (acetaminophen-codeine 120-12 mg/5 ml oral liq) Do not exceed 4gm/day of acetaminophen. (Same as: Tylenol w/Codeine) Start Date: 12/13/14 Stop Date: 12/13/14 Status: Discontinued Tylenol with Codeine 120 mg-12 mg/5 mL oral liquid 15 mL, PO, Q4H, Pain Score 1-5, # 240 mL, 0 Refill(s) Start Date: 12/13/14 Status: Ordered Vitamin D PO, Daily, 0 Refill(s) Start Date: 12/06/14 Stop Date: 12/13/14 Status: Discontinued Zofran 4 mg, 2 mL, Route: IV, Drug form: INJ, Q6H, Dosing Weight 115.455, kg, PRN Nause a, Start date: 12/12/14 12:00:00, Duration: 30 day, Stop date: 01/11/15 6:00:00 Notes: (Same as: Zofran) Start Date: 12/12/14 Stop Date: 12/13/14 Status: Discontinued Zofran ODT 4 mg oral tablet, disintegrating 4 mg=1 tab, PO, BID, Nausea and Vomiting, Dissolve tab under tongue, # 10 tab, 0 Refill(s) Special Instructions: Dissolve tab under tongue Start Date: 12/13/14 Status: Ordered Results BLOOD BANK RESULTS Most recent to 1 2 oldest [Reference Range]: ABO/Rh O POS *Unknown* (12/12/14 6:50 AM) Antibody Scrn Negative (12/12/14 6:50 AM) ELECTROLYTES Most recent to 1 2 oldest [Reference Range]: Sodium Lvl [135-145 138 mEq/L 142 mEq/L mEq/L] (12/13/14 1:48 AM) (12/06/14 2:30 PM) Potassium Lvl 4.1 mEq/L 3.8 mEq/L [3.5-5.1 mEq/L] (12/13/14 1:48 AM) (12/06/14 2:30 PM) Chloride Lvl [95-109 106 mEq/L 103 mEq/L mEq/L] (12/13/14 1:48 AM) (12/06/14 2:30 PM) CO2 [24-32 mEq/L] 25 mEq/L 28 mEq/L (12/13/14 1:48 AM) (12/06/14 2:30 PM) AGAP [10.0-20.0 11.1 mEq/L 14.8 mEq/L mEq/L] (12/13/14 1:48 AM) (12/06/14 2:30 PM) CHEM PANEL Most recent to 1 2 oldest [Reference Range]: Creatinine Lvl 1.2 mg/dL 1.2 mg/dL [0.5-1.4 mg/dL] (12/13/14 1:48 AM) (12/06/14 2:30 PM) eGFR 51 mL/min/1.73m2 1 51 mL/min/1.73m2 2 *NA* *NA* (12/13/14 1:48 AM) (12/06/14 2:30 PM) BUN [7-22 mg/dL] 17 mg/dL 20 mg/dL (12/13/14 1:48 AM) (12/06/14 2:30 PM) B/C Ratio [6-25] 17 (12/06/14 2:30 PM) Glucose Lvl [70-99 98 mg/dL 3 80 mg/dL 4 mg/dL] (12/13/14 1:48 AM) (12/06/14 2:30 PM) Total Protein 7.6 g/dL [6.4-8.4 g/dL] (12/06/14 2:30 PM) Albumin Lvl [3.5-5.0 4.1 g/dL g/dL] (12/06/14 2:30 PM) Globulin [2.0-4.0 3.5 g/dL g/dL] (12/06/14 2:30 PM) A/G Ratio [0.7-1.6] 1.2 (12/06/14 2:30 PM) Calcium Lvl 8.4 mg/dL 9.5 mg/dL [8.5-10.5 mg/dL] *LOW* (12/06/14 2:30 PM) (12/13/14 1:48 AM) Magnesium Lvl 1.8 mg/dL [1.8-2.4 mg/dL] (12/13/14 1:48 AM) ALT [0-65 unit/L] 27 unit/L (12/06/14 2:30 PM) AST [0-37 unit/L] 14 unit/L (12/06/14 2:30 PM) Alk Phos [39-136 94 unit/L unit/L] (12/06/14 2:30 PM) Bili Total [0.2-1.3 0.3 mg/dL mg/dL] (12/06/14 2:30 PM) 1Result Comment: The eGFR is calculated using [...] be mul tiplied by the estimated BMI. 2Result Comment: The eGFR is calculated using [...] be mul tiplied by the estimated BMI. 3Interpretive Data: Adult reference range values reflect the clinical guidelines of the [place] [employer]. 4Interpretive Data: Adult reference range values reflect the clinical guidelines of the [place] [employer]. SPECIAL CHEMISTRY Most recent to 10 04 oldest [Reference Range]: Hgb A1C [<=5.6 %] 5.6 % (12/06/14 2:30 PM) URINE AND STOOL Most recent to 10 04 oldest [Reference Range]: UA Turbidity [Clear] Clear (12/06/14 2:30 PM) UA Color [Yellow] Light Yellow *NA* (12/06/14 2:30 PM) UA pH [5.0-8.0] 6.5 (12/06/14 2:30 PM) UA Spec Grav 1.008 [<=1.030] (12/06/14 2:30 PM) UA Glucose [Negative Negative mg/dL mg/dL] *NA* (12/06/14 2:30 PM) UA Blood [Negative] Negative (12/06/14 2:30 PM) UA Ketones [Negative Negative mg/dL mg/dL] *NA* (12/06/14 2:30 PM) UA Protein [Negative Negative mg/dL mg/dL] (12/06/14 2:30 PM) UA Urobilinogen <=1.0 mg/dL [0.1-1.0 mg/dL] *NA* (12/06/14 2:30 PM) UA Bili [Negative] Negative *NA* (12/06/14 2:30 PM) UA Leuk Est Negative [Negative] (12/06/14 2:30 PM) UA Nitrite Negative [Negative] (12/06/14 2:30 PM) UA WBC [0-5 /HPF] 1 /HPF (12/06/14 2:30 PM) UA RBC [0-2 /HPF] 1 /HPF (12/06/14 2:30 PM) UA Bacteria [None Few /HPF Seen /HPF] *NA* (12/06/14 2:30 PM) UA Sq Epi [Few /LPF] Few /LPF *NA* (12/06/14 2:30 PM) Micro? Not Indicated *NA* (12/06/14 2:30 PM) HEMATOLOGY Most recent to 1 2 oldest [Reference Range]: WBC [3.7-10.4 K/CMM] 9.8 K/CMM 6.4 K/CMM (12/13/14 1:48 AM) (12/06/14 2:30 PM) RBC [4.20-5.40 4.24 M/CMM 4.74 M/CMM M/CMM] (12/13/14 1:48 AM) (12/06/14 2:30 PM) Hgb [12.0-16.0 g/dL] 13.0 g/dL 14.5 g/dL (12/13/14 1:48 AM) (12/06/14 2:30 PM) Hct [36.0-48.0 %] 38.6 % 42.7 % (12/13/14 1:48 AM) (12/06/14 2:30 PM) MCV [80.0-98.0 fL] 91.0 fL 90.2 fL (12/13/14 1:48 AM) (12/06/14 2:30 PM) MCH [27.0-31.0 pg] 30.6 pg 30.5 pg (12/13/14 1:48 AM) (12/06/14 2:30 PM) MCHC [32.0-36.0 33.6 g/dL 33.9 g/dL g/dL] (12/13/14 1:48 AM) (12/06/14 2:30 PM) RDW [11.5-14.5 %] 14.7 % 14.4 % *HI* (12/06/14 2:30 PM) (12/13/14 1:48 AM) Platelet [133-450 226 K/CMM 241 K/CMM K/CMM] (12/13/14 1:48 AM) (12/06/14 2:30 PM) MPV [7.4-10.4 fL] 8.4 fL 8.9 fL (12/13/14 1:48 AM) (12/06/14 2:30 PM) Segs [45.0-75.0 %] 84.7 % 65.5 % *HI* (12/06/14 2:30 PM) (12/13/14 1:48 AM) Lymphocytes 7.7 % 25.0 % [20.0-40.0 %] *LOW* (12/06/14 2:30 PM) (12/13/14 1:48 AM) Monocytes [2.0-12.0 7.3 % 7.0 % %] (12/13/14 1:48 AM) (12/06/14 2:30 PM) Eosinophils [0.0-4.0 0.1 % 2.3 % %] (12/13/14 1:48 AM) (12/06/14 2:30 PM) Basophils [0.0-1.0 0.2 % 0.2 % %] (12/13/14 1:48 AM) (12/06/14 2:30 PM) Segs-Bands # 8.3 K/CMM 4.2 K/CMM [1.5-8.1 K/CMM] *HI* (12/06/14 2:30 PM) (12/13/14 1:48 AM) Lymphocytes # 0.7 K/CMM 1.6 K/CMM [1.0-5.5 K/CMM] *LOW* (12/06/14 2:30 PM) (12/13/14 1:48 AM) Monocytes # [0.0-0.8 0.7 K/CMM 0.4 K/CMM K/CMM] (12/13/14 1:48 AM) (12/06/14 2:30 PM) Eosinophils # 0.1 K/CMM [0.0-0.5 K/CMM] (12/06/14 2:30 PM) PT [12.0-14.7 12.6 seconds seconds] (12/06/14 2:30 PM) INR [0.85-1.17] 0.94 5 (12/06/14 2:30 PM) PTT [22.9-35.8 35.7 seconds 6 seconds] (12/06/14 2:30 PM) 5Interpretive Data: RECOMMENDED RANGES FOR PROTIME INR: 2.0-3.0 for most medical and surgical thromboembolic states. 2.5-3.5 for artificial heart valves and recurrent embolism. INR SHOULD BE USED ONLY FOR PATIENTS ON STABLE ANTICOAGULANT THERAPY. 6Interpretive Data: Heparin Therapeutic Range: 57 - 92 Seconds Immunizations Vaccine Date Refusal Reason influenza virus vaccine, inactivated1 12/13/14 Patient Refuses 1Result Comment: md aware Procedures [...] Smoking Cessation Counseling Yes Assessment and Plan Extracted from: Title: General Surgery Author: Sim Bueno Date: 12/13/14 Discharge Summary Admission Date: 12/12/2014 Discharge Date: 12/13/2014 Admission Diagnosis: 1. morbid obesity 2. hypertension 3. hyperlipidemia Final Diagnosis: 1. morbid obesity 2. hypertension 3. hyperlipidemia Attending Physician: Steve Kumari MD Consults: None Procedures: 1. robot assisted laparoscopic sleeve gastrectomy 2. esophagogastroduodenoscopy Reason for Admission: The patient is with a history of morbid obesity and associated comorbidities, who underwent the appropriate preoperative workup and was deemed an appropriate candidate for bariatric surgery. Hospital Course: The procedure was well tolerated, the patient was extubated in the operating room and transferred to the floor in stable condition. On POD#0, the patient was started on a bariatric clear liquid diet and transitioned to oral pain medication. On POD#1, the patient was ambulating independently with sufficient oral intake and was ready for discharge with strict instructions for the bariatric diet and post-operative follow up. Discharge Condition: Good Disposition: Discharged to home. Diet: Bariatric clear liquid diet Activity: No heavy lifting greater than 10 lbs until evaluated in post-op clinic. Special Instructions: - Do not attempt to remove Dermabond dressing - May shower; no bathing. - Do not drive while taking narcotic pain medications - Return to the ED with increased pain, fever, nausea, vomiting, signs of infection or drainage from the wound. Discharge Medications: See Medical Reconciliation Follow up: Follow up in [facility] in 1 week. Call to make an appointment. Extracted from: Title: progress note Author: Sim Leonard MD Date: 12/13/14 SUBJECTIVE: NAEO. Pain controlled. PHYSICAL EXAM: GENERAL: Resting comfortably, no distress CARDIAC: Regular rate and rhythm, acyanotic, no JVD PULMONARY: Normal rate, nonlabored, symmetric expansion, stable on room air ABDOMEN: Soft, non-distended. Incisions c/d/i. EXTREMITIES: No peripheral edema, palpable pulses VitalsTmp(F)[id number] 12/13 04:[id number]--- 12/12 23:[id number]--- 12/12 19:[id number]--- 12/12 15:[id number]--- 12/12 12:[id number]--- 24 Hr Tmax: 98.7F (37.06c) at 12/12 19:20Vital Signs are the last 5 in the past 48 hours. Labs (Last four charted values) WBC 9.8(DEC 13)6.4(DEC 06) Hgb 13.0(DEC 13)14.5(DEC 06) Hct 38.6(DEC 13)42.7(DEC 06) Plt 226(DEC 13)241(DEC 06) Na 138(DEC 13)142(DEC 06) K 4.1(DEC 13)3.8(DEC 06) CO2 25(DEC 13)28(DEC 06) Cl 106(DEC 13)103(DEC 06) Cr 1.2(DEC 13)1.2(DEC 06) BUN 17(DEC 13)20(DEC 06) Glucose Random 98(DEC 13)80(DEC 06) Mg 1.8(DEC 13) Ca L 8.4(DEC 13)9.5(DEC 06) PT 12.6(DEC 06) INR 0.94(DEC 06) PTT 35.7(DEC 06)I&ORecordInOutBal 1224hr Tot [id number] 370 4071 1124hr Tot 0 0 0 Lines, Tubes, and Drains: 12/12/2014 10:45 Peripheral Lines: Hand Left Over the needle catheter 12/12/2014 07:12 Peripheral Lines: Hand Right 20 gauge Over the needle catheter IMAGING: No new imaging. ASSESSMENT: 54 year o0ld woman POD #1 s/p laparoscopic sleeve gastrectomy PLAN: Pain: start tylenol 3 liquid, cont [employer]OM[employer]BI[employer] MECH[employer]IC SUPERVISOR Diet: start Brody CLD Encourage ambulation. Extracted from: Title: brief Op note Author: Sim Bueno Date: 12/12/14 Brief Op Note Date of Operation: 12/11/2014 Surgeon: Steve Kumari MD Frame And Scrap Crusher: Sim Trinidad MD Preoperative Diagnosis: 1. Morbid obesity 2. Hypertension 3. Hyperlipidemia Postoperative Diagnosis: 1. Morbid obesity 2. Hypertension 3. Hyperlipidemia Procedure: 1. laparoscopic sleeve gastrectomy 2. esophagogastroduodenoscopy Estimated Blood Loss: minimal Urine Output: not recorded Specimens: partial stomach Complications: none Disposition: 9 Matos
--- OUTSIDE RECORDS SUMMARY | 2019-03-20 13:33 | XMS REPORT | Summary of Care ---
Author Author [facility] Organization [facility] Address Unknown Phone Unavailable Encounter MIGUEL Chauhan(FIN) [id number] Date(s): 01/10/19 - 01/11/19 [facility] [address] [place] [address]- [phone] Vital Signs No data available for this section Problem List Condition Effective Dates Status Health Status Informant Acute stress Resolved disorder(Confirmed) Benign Active hypertension(Confirm ed) Chicken Resolved pox(Confirmed) Low serum vitamin Active D(Confirmed) Rossi Active thyroiditis1 Hypothyroidism(Confi Active rmed) Skin Resolved problem(Confirmed) Thyroid Resolved disease(Confirmed) Vitamin D 02/03/15 Active deficiency2 1Data migrated from [employer] on 04/09/15. 2Data migrated from [employer] on 04/09/15. Allergies, Adverse Reactions, Alerts Substance [...] treadmil. Employment/School Status: Employed. 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 Other: Maritial Status: to Segun Children: 2 [...]
--- OUTSIDE RECORDS SUMMARY | 2019-03-20 13:33 | XMS REPORT | Summary of Care ---
Author Author [facility] Organization [facility] Address Unknown Phone Unavailable Encounter HQ Rociorstephanie(FIN) [id number] Date(s): 07/02/18 - 07/02/18 [facility] [address] [place] [address]- [phone] Discharge Disposition: Home or Self Care Attending Physician: Michael Doty MD Referring Physician: Nova Rivero MD Vital Signs Most recent to 1 oldest [Reference Range]: Height 170.18 cm (07/02/18 1:26 PM) Temperature Oral 98.8 DegF [96.4-99.1 DegF] (07/02/18 1:26 PM) Blood Pressure 153/79 mmHg [90-140/60-90 mmHg] *HI* (07/02/18 1:26 PM) Respiratory Rate 18 BRMIN [14-20 BRMIN] (07/02/18 1:26 PM) Peripheral Pulse 68 bpm Rate [60-100 bpm] (07/02/18 1:26 PM) Weight 71.875 kg (07/02/18 1:26 PM) Body Mass Index 24.82 m2 (07/02/18 1:26 PM) Problem List Condition Effective Dates Status [...] Substance Reaction Severity Status NKDA Active Medications cyclobenzaprine 10 mg oral tablet 10 mg=1 tab, PO, Bedtime, X 14 day, # 14 tab, 0 Refill(s), Pharmacy: [facility] #[id number] Start Date: 07/02/18 Stop Date: 07/16/18 Status: Completed ibuprofen 600 mg oral tablet 600 mg=1 tab, PO, Q6H, PRN Pain, take with food, X 10 day, # 30 tab, 0 Refill(s) , Pharmacy: [facility] #[id number] Start Date: 07/02/18 Stop Date: 07/12/18 Status: Completed Results No data available for [...] treadmil. Employment/School Status: Employed. 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 Other: Maritial Status: to Segun Children: 2 [...]
--- OUTSIDE RECORDS SUMMARY | 2019-03-20 13:33 | XMS REPORT | Summary of Care ---
Author Author [facility] Organization [facility] Address Unknown Phone Unavailable Encounter MIGUEL Chauhan(FIN) [id number] Date(s): 01/11/19 - 01/12/19 [facility] [address] [place] [address]- [phone] Vital Signs No data available for this section Problem List Condition Effective Dates Status Health Status Informant Acute stress Resolved disorder(Confirmed) Benign Active hypertension(Confirm ed) Chicken Resolved pox(Confirmed) Low serum vitamin Active D(Confirmed) Rossi Active thyroiditis1 Hypothyroidism(Confi Active rmed) Skin Resolved problem(Confirmed) Thyroid Resolved disease(Confirmed) Vitamin D 02/03/15 Active deficiency2 1Data migrated from [employer] on 04/09/15. 2Data migrated from [employer] on 04/09/15. Allergies, Adverse Reactions, Alerts Substance Reaction Severity Status NKDA Active Medications Synthroid 125 mcg (0.125 mg) oral tablet =1 tab, PO, Daily, # 90 tab, 1 Refill(s), [facility], Pharmacy: [facility]/pharmacy #[id number] Start Date: 01/11/19 Status: Ordered Results No data available for [...] treadmil. Employment/School Status: Employed. 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 Other: Maritial Status: to Segun Children: 2 [...]
--- OUTSIDE RECORDS SUMMARY | 2019-03-20 13:33 | XMS REPORT | Summary of Care ---
Author Author [facility] Organization [facility] Address Unknown Phone Unavailable Encounter HQ [email or web address](FIN) [id number] Date(s): 01/24/18 - 01/24/18 [facility] [address] [place], [place] [address] [[email or web address]] [phone] Discharge Disposition: Home or Self Care Attending [...] treadmil. Employment/School Status: Employed. 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 Other: Maritial Status: to [place] Children: 2 [...]
--- OUTSIDE RECORDS SUMMARY | 2019-03-20 13:33 | XMS REPORT | Summary of Care ---
Author Author [facility] [place] Organization [facility] [place] Address Unknown Phone Unavailable Encounter HQ Amarilis_clementine(FIN) [id number] Date(s): 12/02/17 - 12/03/17 [facility] [place] [address] [facility] [address] [place] [address]- Vital Signs No data available for this section Problem List Condition Effective Dates Status Health Status Informant Acute stress Resolved disorder(Confirmed) Benign Active hypertension(Confirm ed) Chicken Resolved pox(Confirmed) Low serum vitamin Active D(Confirmed) Rossi Active thyroiditis1 Hypothyroidism(Confi Active rmed) Skin Resolved problem(Confirmed) Thyroid Resolved disease(Confirmed) Vitamin D 02/03/15 Active deficiency2 1Data migrated from [employer] on 04/09/15. 2Data migrated from [employer] on 04/09/15. Allergies, Adverse Reactions, Alerts Substance Reaction Severity Status NKDA Active Medications Synthroid 137 mcg (0.137 mg) oral tablet 137 microgram=1 tab, PO, Daily, Generic (DAW5), # 90 tab, 1 Refill(s), BUD, [facility] Start Date: 12/02/17 Stop Date: 05/31/18 Status: Ordered Results No data available for [...] treadmil. Employment/School Status: Employed. 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 Other: Maritial Status: to Segun Children: [...]
--- OUTSIDE RECORDS SUMMARY | 2019-03-20 13:33 | XMS REPORT | Summary of Care ---
Author Author [facility] Internal [facility] [place] Organization [facility] [place] Address Unknown Phone Unavailable Encounter MIGUEL Chauhan(FIN) [id number] Date(s): 02/08/19 - 02/09/19 [facility] Internal [facility] [place] [address] [facility] [address] [place] [address]- [phone] Vital Signs No data available for this section Problem List Condition Effective Dates Status Health Status Informant Acute stress Resolved disorder(Confirmed) Benign Active hypertension(Confirm ed) Chicken Resolved pox(Confirmed) Low serum vitamin Active D(Confirmed) Rossi Active thyroiditis1 Hypothyroidism(Confi Active rmed) Skin Resolved problem(Confirmed) Thyroid Resolved disease(Confirmed) Vitamin D 02/03/15 Active deficiency2 1Data migrated from [employer] on 04/09/15. 2Data migrated from [employer] on 04/09/15. Allergies, Adverse Reactions, Alerts No Known Medication Allergies Medications olmesartan 20 mg oral tablet =1 tab, PO, Daily, # 30 tab, Refill(s) 2, Pharmacy: [facility]/pharmacy #[id number] Start Date: 02/08/19 Status: Ordered Results No data available for [...] treadmil. Employment/School Status: Employed. 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 Other: Maritial Status: to Segun Children: 2 [...]
--- OUTSIDE RECORDS SUMMARY | 2019-03-20 13:33 | XMS REPORT | Summary of Care ---
Author Author [facility] Internal Medicine [facility] [place] Organization [facility] Internal Medicine [facility] Address Unknown Phone Unavailable Encounter MIGUEL Chauhan(FIN) [id number] Date(s): 10/25/18 - 10/26/18 [facility] Internal Medicine [facility] [address] [facility] [address] [place] [address]- Vital Signs No data available for this section Problem List Condition Effective Dates Status Health Status Informant Acute stress Resolved disorder(Confirmed) Benign Active hypertension(Confirm ed) Chicken Resolved pox(Confirmed) Low serum vitamin Active D(Confirmed) Rossi Active thyroiditis1 Hypothyroidism(Confi Active rmed) Skin Resolved problem(Confirmed) Thyroid Resolved disease(Confirmed) Vitamin D 02/03/15 Active deficiency2 1Data migrated from [employer] on 04/09/15. 2Data migrated from [employer] on 04/09/15. Allergies, Adverse Reactions, Alerts Substance Reaction Severity Status NKDA Active Medications Synthroid 125 mcg (0.125 mg) oral tablet =1 tab, PO, Daily, # 90 tab, Refill(s) 1, [facility] Start Date: 10/25/18 Status: Ordered Results No data available for [...] treadmil. Employment/School Status: Employed. 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 Other: Maritial Status: to Segun Children: 2 boys Pets: none Surrogate Decision Maker: both. Alcohol Never Smoking Status Never smoker; Ready to change: No; Concerns about tobacco use in household: No; Exposure to Tobacco Smoke None; Cigarette Smoking Last 365 Days No; Reg Smoking Cessation Counseling Yes entered on: 07/02/18 Assessment and Plan No data available for this section
--- OUTSIDE RECORDS SUMMARY | 2019-03-20 13:33 | XMS REPORT | Summary of Care ---
Author Author [facility] [place] Organization [facility] [place] Address Unknown Phone Unavailable Encounter MIGUEL Chauhan(KAILA) [id number] Date(s): 10/30/18 - 10/30/18 [facility] [address] [facility] [address] [place] [address]- Discharge Disposition: Home or Self Care Attending Physician: Carlee Walters MD Referring Physician: Nova Rivero MD Vital Signs Most recent to 1 oldest [Reference Range]: Height 170.18 cm (10/30/18 3:46 PM) Blood Pressure 122/80 mmHg [90-140/60-90 mmHg] (10/30/18 3:46 PM) Respiratory Rate 18 BRMIN [14-20 BRMIN] (10/30/18 3:46 PM) Peripheral Pulse 67 bpm Rate [60-100 bpm] (10/30/18 3:46 PM) Weight 70.142 kg (10/30/18 3:46 PM) Body Mass Index 24.22 m2 (10/30/18 3:46 PM) Problem List Condition Effective Dates Status Health Status Informant Acute stress Resolved disorder(Confirmed) Benign Active hypertension(Confirm ed) Chicken Resolved pox(Confirmed) Low serum vitamin Active D(Confirmed) Rossi Active thyroiditis1 Hypothyroidism(Confi Active rmed) Skin Resolved problem(Confirmed) Thyroid Resolved disease(Confirmed) Vitamin D 02/03/15 Active deficiency2 1Data migrated from [employer] on 04/09/15. 2Data migrated from [employer] on 04/09/15. Allergies, Adverse Reactions, Alerts Substance Reaction Severity Status NKDA Active Medications No Known Medications Results No data available for this section [...] treadmil. Employment/School Status: Employed. 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 Other: Maritial Status: to Segun Children: 2 [...]
--- OUTSIDE RECORDS SUMMARY | 2019-03-20 13:33 | XMS REPORT | Summary of Care ---
Author Author [facility] [place] [facility] [place] [facility] [place] [facility] [place] Address Unknown Phone Unavailable Encounter MIGUEL Chauhan(KAILA) [id number] Date(s): 04/27/18 - 04/27/18 [facility] [place] [facility] [place] [address] [facility] [address] [place] [address]- Discharge Disposition: Home or Self Care Attending Physician: Nova Rivero MD Referring Physician: Nova Rivero MD Vital Signs Most recent to 1 oldest [Reference Range]: Height 170.18 cm (04/27/18 2:48 PM) Blood Pressure 140/80 mmHg [90-140/60-90 mmHg] (04/27/18 2:48 PM) Peripheral Pulse 63 bpm Rate [60-100 bpm] (04/27/18 2:48 PM) Weight 70.909 kg (04/27/18 2:48 PM) Body Mass Index 24.48 m2 (04/27/18 2:48 PM) Problem List Condition Effective Dates Status Health Status Informant Acute stress Resolved disorder(Confirmed) Benign Active hypertension(Confirm ed) Chicken Resolved pox(Confirmed) Low serum vitamin Active D(Confirmed) Rossi Active thyroiditis1 Hypothyroidism(Confi Active rmed) Skin Resolved problem(Confirmed) Thyroid Resolved disease(Confirmed) Vitamin D 02/03/15 Active deficiency2 1Data migrated from [employer] on 04/09/15. 2Data migrated from [employer] on 04/09/15. Allergies, Adverse Reactions, Alerts Substance Reaction Severity Status NKDA Active Medications Synthroid 125 mcg (0.125 mg) oral tablet 125 microgram=1 tab, PO, Daily, # 2 box, 0 Refill(s), given to patient Start Date: 04/27/18 Stop Date: 07/02/18 Status: Discontinued Synthroid 125 mcg (0.125 mg) oral tablet 125 microgram=1 tab, PO, Daily, # 90 tab, 1 Refill(s), [facility] Start Date: 04/27/18 Stop Date: 10/25/18 Status: Completed ZyrTEC Daily, 0 Refill(s) Start Date: 04/27/18 Status: Ordered Results No data available for [...] treadmil. Employment/School Status: Employed. 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 Other: Maritial Status: to Segun Children: 2 [...]
--- NOTE | 2019-03-20 15:47 | Operative Report ---
DATE OF PROCEDURE: 03/20/2019 SURGEON: Perez Jane MD INDICATION: Coronary artery disease, abnormal stress test. PROCEDURES PERFORMED: 1. Left heart catheterization, selective coronary angiography. 2. Deployment of right wrist TR band. COMPLICATIONS: None. RECOMMENDATIONS: Beta-chivo for myocardial bridging. DESCRIPTION OF PROCEDURE: Access was obtained in the right radial artery. A 5-Frisian sheath was placed. Diagnostic coronary angiogram revealed mild coronary artery disease. Proximal left anterior descending artery 30% to 50% stenosis. Mid left anterior descending artery, mild myocardial bridging was noted. LV ejection fraction 65%. LV end-diastolic pressure of 2. No gradient across the aortic valve on pullback. Right wrist sheath and guide were removed. TR band applied. The patient discharged home same day. Perez Jane MD KSB/MODL /[id number]
--- NOTE | 2019-03-20 19:13 | NUR ---
Tegaderm and 2x2 dressing applied with Coban re-enforcement. No bleeding or hematoma noted. Pt dc'd via wheelchair to front lobby with family. No complaints or questions. discharge and teaching complete. no apparent difficulties.
== END | disposition home or self-care (01) ==
LOC: CATH LAB 01:25
PROVIDERS: ATTEND Internal Medicine Interventional Cardiology
DX: I25.118 Atherosclerotic heart disease of native coronary artery with other forms of angina pectoris (principal); I87.2 Venous insufficiency (chronic) (peripheral); Z01.812 Encounter for preprocedural laboratory examination
CPT/HCPCS: 36415; 80053; 85025; 85610; 93458; C1769; C1887; J2001; J2250; J7030